=== PATIENT | male | born 1990 | race American Indian/Alaskan Native ===

== ENCOUNTER 2019-08-25 20:57 | Emergency (ER) | payer SELFPAY ==
--- NOTE | 2019-08-25 21:48 | Event Note ---
ED Screening Note ED Screening Note: states he had the flu last week +productive cough for about three days states he was having wheezing, states he has been using breathing treatments This initial assessment/diagnostic orders/clinical plan/treatment(s) is/are subject to change based on patients health status, clinical progression and re- assessment by fellow clinical providers in the ED. Further treatment and workup at subsequent clinical providers discretion. Patient/guardian urged not to elope from the ED as their condition may be serious if not clinically assessed and managed. Initial orders include: XR chest
--- NOTE | 2019-08-25 22:41 | XRay Report ---
CHEST 2 VIEWS INDICATION / CLINICAL INFORMATION: Productive cough. Sharp pain under left arm for 3 days. COMPARISON: None available. FINDINGS: SUPPORT DEVICES: None. HEART / MEDIASTINUM: No significant abnormality. LUNGS / PLEURA: No significant pulmonary or pleural abnormality. No pneumothorax. ADDITIONAL FINDINGS: No significant additional findings. IMPRESSION: 1. No acute abnormality of the chest. Signer Name: Chevy Zarate MD Signed: 08/25/2019 10:37 PM Workstation Name: [id number]
[2019-08-25] MEDS ORDERED: IPRATROPIUM/ALBUTEROL SULFATE 3 ML AMPUL.NEB IH ONE (23:37)
--- NOTE | 2019-08-25 23:42 | Emergency Department Report ---
HPI - General Chief Complaint: Pain General Time Seen by Provider: 08/25/19 21:45 - HPI HPI: Room 39 The patient is a 29-year-old male presenting with a chief complaint of left axilla/chest pain. The patient states for the past week it is suffering from "the flu." The patient states his daughter was sick and he had same symptoms include rhinorrhea cough and congestion. Patient states he had began improving however over the past 5 days 16 have a cough that was nonproductive. The patient denies shortness of breath or fever but states he's had pain in the left axilla/left chest for the past 3 days. He states the pain worsens with certain movements. She denies pleurisy. The patient states he went to an urgent care facility this morning was diagnosed with bronchitis and started on albuterol and azithromycin ED Past Medical Hx - Past Medical History Previous Medical History?: Yes Additional medical history: Ulcerative Colitis - Surgical History Past Surgical History?: No - Family History Family history: no significant - Social History Smoking Status: Never Smoker Substance Use Type: None (denies illicit drug use), Alcohol (occasional) - Medications Home Medications: Home Medications Medication Instructions Recorded Confirmed Last Taken Type HYDROcodone/APAP 5-325 [Sallis 1 - 2 each PO Q6HR PRN #10 tablet 08/26/19 Unknown Rx 5/325] Ibuprofen [Motrin 800 MG tab] 800 mg PO Q8HR PRN #20 tablet 08/26/19 Unknown Rx ED Review of Systems ROS: Stated complaint: SHARP PAIN UNDER LEFT ARM/TINGLING/COUGH Other details as noted in HPI Constitutional: denies: fever Eyes: denies: eye pain ENT: denies: throat pain Respiratory: cough. denies: shortness of breath Endocrine: no symptoms reported Gastrointestinal: denies: abdominal pain Genitourinary: denies: dysuria Musculoskeletal: myalgia Neurological: denies: headache Physical Exam - Physical Exam Vital Signs: Vital Signs 08/25/19 21:00 Temperature 98.5 F Pulse Rate 107 H Respiratory 20 Rate Blood Pressure 155/99 O2 Sat by Pulse 100 Oximetry Physical Exam: GENERAL: The patient is well-developed well-nourished male sitting on stretcher not appear to be in acute distress. [] HEENT: Normocephalic. Atraumatic. Extraocular motions are intact. Patient has moist mucous membranes. NECK: Supple. Trachea midline CHEST/LUNGS: Occasional rhonchi throughout. Occasional wheezing left lower lobe. There is no respiratory distress noted. HEART/CARDIOVASCULAR: Regular. There is no tachycardia. There is no gallop rub or murmur. ABDOMEN: Abdomen is soft, nontender. Patient has normal bowel sounds. There is no abdominal distention. SKIN: There is no rash. There is no edema. There is no diaphoresis. NEURO: The patient is awake, alert, and oriented. The patient is cooperative. The patient has normal speech MUSCULOSKELETAL: There is tenderness of the left chest wall. There is no evidence of acute injury. ED Course Vital Signs 08/25/19 21:00 Temperature 98.5 F Pulse Rate 107 H Respiratory 20 Rate Blood Pressure 155/99 O2 Sat by Pulse 100 Oximetry - Reevaluation(s) Reevaluation #1: 08/26/19 03:23 Patient resting comfortably. ED Medical Decision Making - Lab Data Result diagrams: 08/26/19 00:03 08/26/19 00:03 Laboratory Tests 08/26/19 08/26/19 08/26/19 00:03 00:03 00:03 WBC 5.4 RBC 5.10 H Hgb 14.4 Hct 41.7 MCV 82 L MCH 28 MCHC 35 H RDW 13.7 Plt Count 282 Lymph % (Auto) 45.0 H [place] % (Auto) 9.0 H Eos % (Auto) 1.2 Baso % (Auto) 1.0 Lymph # 2.4 [place] # 0.5 Eos # 0.1 Baso # 0.1 Seg Neutrophils % 43.8 Seg Neutrophils # 2.4 D-Dimer 654.19 H Sodium 138 Potassium 4.7 Chloride 101.8 Carbon Dioxide 28 Anion Gap 13 BUN 11 Creatinine 0.8 Estimated GFR > 60 BUN/Creatinine Ratio 14 Glucose 102 H Calcium 9.1 Total Creatine Kinase 120 CK-MB (CK-2) < 1.0 CK-MB (CK-2) Rel Index 0.8 Troponin T < 0.010 - EKG Data -: EKG Interpreted by Ia EKG shows normal: sinus rhythm Rate: normal - EKG Data When compared to previous EKG there are: previous EKG unavailable Interpretation: nonspecific ST-T wave jaylan (T-wave inversion in lead V2) - Radiology Data Radiology results: report reviewed (chest x-ray), image reviewed (chest x-ray) interpreted by me: Chest x-ray-no focal infiltrates, no pneumothorax [facility] [address] [place] [address] XRay Report Signed Patient: TINA MONROE III MR# : [id number] : 1990 Acct:[id number] Age/Sex: 29 / M ADM Date: 08/25/19 Loc: ED Attending Dr: Ordering Physician: WANDA RETANA Date of Service: 08/25/19 Procedure(s): XR chest routine 2V Accession Number(s): [id number] cc: WANDA RETANA Fluoro Time In Minutes: CHEST 2 VIEWS INDICATION / CLINICAL INFORMATION: Productive cough. Sharp pain under left arm for 3 days. COMPARISON: None available. FINDINGS: SUPPORT DEVICES: None. HEART / MEDIASTINUM: No significant abnormality. LUNGS / PLEURA: No significant pulmonary or pleural abnormality. No pneumothorax. ADDITIONAL FINDINGS: No significant additional findings. IMPRESSION: 1. No acute abnormality of the chest. Signer Name: Chevy Zarate MD Signed: 08/25/2019 10:37 PM Workstation Name: [id number] Transcribed By: [place] Dictated By: Chevy Zarate MD Electronically Authenticated By: Chevy Zarate MD Signed Date/Time: 08/25/192236 DD/ 35 TD/TT: - Differential Diagnosis pleurisy, bronchitis, PE, pericarditis, ACS Critical care attestation.: If time is entered above; I have spent that time in minutes in the direct care of this critically ill patient, excluding procedure time. ED Disposition Clinical Impression: Bronchitis, Pleurisy Disposition: DC-01 TO HOME OR SELFCARE Is pt being admited?: No Does the pt Need Aspirin: No Condition: Stable Instructions: Acute Bronchitis (ED) Prescriptions: Ibuprofen [Motrin 800 MG tab] 800 mg PO Q8HR PRN #20 tablet PRN Reason: Pain, Moderate (4-6) HYDROcodone/APAP 5-325 [Sallis 5/325] 1 - 2 each PO Q6HR PRN #10 tablet PRN Reason: Pain Referrals: [place] JULIANNA MACIAS MD [Primary Care Provider] - 3-5 Days Time of Disposition: 03:23
[2019-08-26 00:50] LABS: Basophils # (Auto) 0.1 K/mm3 (0.0-0.1); Eosinophils # (Auto) 0.1 K/mm3 (0.0-0.4); Eosinophils % (Auto) 1.2 % (0.0-4.3); Hematocrit 41.7 % (35.5-45.6); Hemoglobin 14.4 gm/dl (11.8-15.2); Lymphocytes # (Auto) 2.4 K/mm3 (1.2-5.4); Mean Corpuscular HGB Conc 35 % (32-34); Mean Corpuscular Volume 82 fl (84-94); Monocytes # (Auto) 0.5 K/mm3 (0.0-0.8); Platelet Count 282 K/mm3 (140-440); Red Cell Distribution Width 13.7 % (13.2-15.2)
[2019-08-26 01:12] LABS: BUN/Creatinine Ratio 14; Blood Urea Nitrogen 11 mg/dL (9-20); Calcium 9.1 mg/dL (8.4-10.2); Creatine Kinase MB < 1.0 ng/mL (0.0-4.0); Hemolysis Index 14
--- NOTE | 2019-08-26 03:16 | Cat Scan Report ---
CTA CHEST WITH IV CONTRAST INDICATION: left chest pain. TECHNIQUE: Axial CT images were obtained through the chest after injection of 100 MLO Omnipaque 350 IV contrast. 3 plane MIP reconstructions were produced. All CT scans at this location are performed using CT dose reduction for ALARA by means of automated exposure control. COMPARISON: 2 views of the chest from 08/25/2019. FINDINGS: PULMONARY ARTERIES: Suboptimal opacification without a distinct abnormality. AORTA AND ARTERIES: No significant abnormality of the aorta, great vessels or coronary arteries. MEDIASTINUM: No significant abnormality of the heart or other mediastinal structures. LUNGS: No suspicious consolidation, nodule or mass. No pneumothorax or pleural effusion. ADDITIONAL FINDINGS: None. UPPER ABDOMEN: No acute findings. BONES: No significant osseous abnormality. IMPRESSION: 1. No acute abnormality of the chest. 2. Additional findings as above. Signer Name: Chevy Zarate MD Signed: 08/26/2019 3:12 AM Workstation Name: [id number]
[2019-08-26 03:35] VITALS: BP 129/85
== END 2019-08-26 03:35 | disposition home or self-care (01) ==
LOC: ED 20:57
DX: J40 Bronchitis, not specified as acute or chronic (principal); Z79.899 Other long term (current) drug therapy
CPT/HCPCS: 36415; 71046; 71275; 80048; 82550; 82553; 84484; 85025; 85379; 93005; 93010; 94640; 99284; Q9967; 94644